=== PATIENT | male | born 1970 | race Caucasian/White ===

== ENCOUNTER 2017-01-26 17:06 | Emergency (ER) | payer OTHER ==
[2017-01-26 17:51] VITALS: BP 123/96; PULSE 69; RESP 16; TEMP 97.9; O2SAT 95
[2017-01-26] MEDS ORDERED: predniSONE 20 MG TAB PO ONE (17:56)
[2017-01-26] MEDS ORDERED: OXYCODONE/APAP 5/325 TAB PO ONE (17:57)
--- NOTE | 2017-01-26 18:00 | UCPHY ---
H & P Patient Type: Established Chief Complaint Nursing Narrative: Painful, red sores on R leg and R side of back since night. R groin spasms as well. Time Seen by Provider: 01/26/17 17:49 HPI/ROS: CHIEF COMPLAINT: Rash, leg pain HISTORY OF PRESENT ILLNESS: The patient is a 46-year-old man who comes to the emergency department complaining of right-sided leg pain that began 6 days ago. It has gotten gradually worse. He saw his chiropractor he thought he might have a radiculopathy. Over the last 2 days however he has developed a rash as well that is vesicular. The pain is severe and he cannot lay down or touching anything with his leg. REVIEW OF SYSTEMS: Constitutional: denies: chills, fever, recent illness, recent injury EENTM: denies: blurred vision, double vision, nose congestion Respiratory: denies: cough, shortness of breath Cardiac: denies: chest pain, irregular heart rate, lightheadedness, palpitations Gastrointestinal/Abdominal: denies: abdominal pain, diarrhea, nausea, vomiting, blood streaked stools Genitourinary: denies: dysuria, frequency, hematuria, pain Musculoskeletal: See HPI Skin: See HPI Neurological: denies: headache, numbness, paresthesia, tingling, dizziness, weakness Hematologic/Lymphatic: denies: blood clots, easy bleeding, easy bruising Immunologic/allergic: denies: HIV/AIDS, transplant EXAM: GENERAL: Well-appearing, well-nourished and in no acute distress. HEAD: Atraumatic, normocephalic. EYES: Pupils equal round and reactive to light, extraocular movements intact, sclera anicteric, conjunctiva are normal. ENT: TMs normal, nares patent, oropharynx clear without exudates. Moist mucous membranes. NECK: Normal range of motion, supple without lymphadenopathy or JVD. LUNGS: Breath sounds clear to auscultation bilaterally and equal. No wheezes rales or rhonchi. HEART: Regular rate and rhythm without murmurs, rubs or gallops. ABDOMEN: Soft, nontender, normoactive bowel sounds. No guarding, no rebound. No masses appreciated. BACK: No CVA tenderness, no spinal tenderness, step-offs or deformities EXTREMITIES: Normal range of motion, no pitting or edema. No clubbing or cyanosis. NEUROLOGICAL: Cranial nerves II through XII grossly intact. Normal speech, normal gait. 5/5 strength, normal movement in all extremities, normal sensation PSYCH: Normal mood, normal affect. SKIN: sporadic Zoster type lesions in a L4 distribution over his posterior lateral leg and lower back and well as his anterior lateral thigh. Pain and tenderness along the entire dermatome. Source: Patient Exam Limitations: No limitations - Personal History Current Tetanus Diphtheria and Acellular Pertussis (TDAP): Yes - Medical/Surgical History Hx Asthma: No Hx Chronic Respiratory Disease: No Hx Diabetes: No Hx Cardiac Disease: No Hx Renal Disease: No Hx Cirrhosis: No Hx Alcoholism: No Hx HIV/AIDS: No Hx Splenectomy or Spleen Trauma: No Other PMH: HAS HAD LBP IN THE PAST, diverticulitis, GERD - Family History Significant Family History: No pertinent family hx - Social History Smoking Status: Never smoked Alcohol Use: Sober Drug Use: None Constitutional: Initial Vital Signs Temperature (C) 36.6 C 01/26/17 17:49 Heart Rate 69 01/26/17 17:49 Respiratory Rate 16 01/26/17 17:49 Blood Pressure 123/96 H 01/26/17 17:49 O2 Sat (%) 95 01/26/17 17:49 O2 Delivery Mode Room Air Allergies/Adverse Reactions: No Known Allergies Allergy (Unverified 01/26/17 17:48) Home Medications: Medication Instructions Recorded Tegretol 10/17/15 Prilosec 20 mg 01/26/17 Valacyclovir HCl [Valtrex] 1,000 mg PO TID #21 tab 01/26/17 oxyCODONE/APAP 5/325 [Percocet 1 - 2 tab PO Q4H PRN #20 tab 01/26/17 5/325 (*)] predniSONE 60 mg PO DAILY #15 tab 01/26/17 Medical Decision Making ED Course/Re-evaluation: The patient has shingles clinically and by history. I will treat him with antivirals, steroids and pain medication. I warned him that this will likely be painful for several weeks. He understands. He declines further workup at this time. He will follow up with his primary doctor. We discussed indications for returning. Differential Diagnosis: Partial list of the Differential diagnosis considered include but were not limited to; zoster, allergic reaction, radiculopathy and although unlikely based on the history and physical exam, I also considered muscle strain, arthritis, gout, fasciitis. I discussed these differential diagnoses and the plan with the patient as well as the usual and expected course. The patient understands that the diagnosis is provisional and that in medicine we are not always correct and that further workup is often warranted. Usual and customary warnings were given. All of the patient's questions were answered. The patient was instructed to return to the emergency department should the symptoms at all worsen or return, otherwise to followup with the physician as we discussed. Departure - Departure Disposition: Home, Routine, Self-Care Clinical Impression: Herpes zoster Qualifiers: Herpes zoster complications: without complications Qualified Code(s): B02.9 - Zoster without complications Condition: Fair Instructions: Shingles (ED) Referrals: Larry Bradshaw MD [Primary Care Provider] - As per Instructions Prescriptions: oxyCODONE/APAP 5/325 [Percocet 5/325 (*)] 1 - 2 tab PO Q4H PRN #20 tab PRN Reason: Pain, Severe predniSONE 60 mg PO DAILY #15 tab Valacyclovir HCl [Valtrex] 1,000 mg PO TID #21 tab - PQRS PQRS Measurement: Not applicable
[2017-01-26] MEDS: ACYCLOVIR 400 MG TAB PO ONE ×2 (18:30)
== END 2017-01-26 18:30 | disposition home or self-care (01) ==
LOC: CED 17:06
DX: B02.9 Zoster without complications (principal); K21.9 Gastro-esophageal reflux disease without esophagitis
CPT/HCPCS: G0463-PO